=== PATIENT | female | born 2000 | race Caucasian/White ===

== ENCOUNTER 2022-09-09 11:28 | Emergency (ER) | payer OTHER, SELFPAY ==
--- NOTE | ~2022-09-09 | US_ITS ---
EXAMINATION: US PELVIS CLINICAL INFORMATION: Right lower quadrant pain COMPARISON: None available. TECHNIQUE: Ultrasound of the pelvis is performed using both transabdominal and transvaginal transducers along with Doppler. Transvaginal imaging is performed due to inadequate visualization transabdominally. FINDINGS: Uterus: The uterus is anteverted and measures 6.4 x 3 x 4.8 cm. IUD in endometrial cavity. This is in good position. The double wall endometrial thickness is 0.2 mm. The uterus is smooth in contour and has normal myometrial echogenicity. No visible fibroid. Adnexa: Both ovaries are visualized. There is normal color flow to the adnexa. There is no ovarian torsion. Doppler demonstrates both arterial and venous vascular flow in the right and left ovary. No evidence of ovarian torsion. There is no pelvic ascites or fluid collection. Right adnexa: Corpus luteum cyst in the right ovary measuring 2 x 1.6 x 1.3 cm Right ovary measures 3 x 1.9 x 2.5 cm. Volume 7.5 mL Left adnexa: Left ovary measures 2.9 x 1.8 x 1.5 cm. Volume 4.1 mL US/US pelvic and transvaginal IMPRESSION: Normal ultrasound of pelvis.
[2022-09-09 11:33] VITALS: BP 112/71; PULSE 75; RESP 18; TEMP 36.6; O2SAT 98; BMI 27.3
--- NOTE | 2022-09-09 11:33 | ED.ABDPAIN ---
HPI - Abdominal Pain General Chief Complaint: Abdominal Pain <BALTAZAR Jackman Last Filed: 09/09/22 11:38> Stated Complaint: abd pain/dehydrated <BALTAZAR Jackman Last Filed: 09/09/22 11:38> Time Seen by Provider: 09/09/22 12:57 <BALTAZAR Jackman Last Filed: 09/09/22 11:38> Source: patient and RN notes reviewed <BALTAZAR Hudson Last Filed: 09/09/22 18:51> Mode of arrival: ambulatory <BALTAZAR Hudson Last Filed: 09/09/22 18:51> Limitations: no limitations <BALTAZAR Hudson Last Filed: 09/09/22 18:51> History of Present Illness HPI narrative: This is a 21-year-old female, with a past medical history of type 1 diabetes, who presents to the emergency department today with complaints of abdominal pain since this morning. Patient reports that she woke up this morning and felt lower abdominal pain. She had associated nausea. She reports that she no longer has abdominal pain, but reports abdominal pain only when someone presses on her abdomen. Denies vomiting or diarrhea. She reports that she is sexually active, new partner in the last month. Denies any abnormal vaginal discharge, dysuria, hematuria, urinary urgency or frequency. Denies fevers or chills, recent URI, chest pain or shortness of breath. Denies constipation. She recently was diagnosed with type 1 diabetes and is currently being followed by endocrinology. No other complaints or concerns at this time. <BALTAZAR Hudson Last Filed: 09/09/22 18:51> MD elicited complaint: abdominal pain <BALTAZAR Hudson Last Filed: 09/09/22 18:51> Pertinent past history: none <BALTAZAR Hudson Last Filed: 09/09/22 18:51> Pain Consistency: constant <BALTAZAR Hudson Last Filed: 09/09/22 18:51> Location: none <BALTAZAR Hudson Last Filed: 09/09/22 18:51> Severity: moderate <BALTAZAR Hudson Last Filed: 09/09/22 18:51> Quality: cramping <BALTAZAR Hudson Filed: 09/09/22 18:51> Radiation: none <BALTAZAR Hudson - Last Filed: 09/09/22 18:51> Migration to: no migration <BALTAZAR Hudson Last Filed: 09/09/22 18:51> Exacerbating factors: nothing <BALTAZAR Hudson Last Filed: 09/09/22 18:51> Relieving factors: nothing <BALTAZAR Hudson Last Filed: 09/09/22 18:51> Associated symptoms: nausea <BALTAZAR Hudson Last Filed: 09/09/22 18:51> Related Data Allergies/Adverse Reactions: Allergies Allergy/AdvReac Type Severity Reaction Status Date / Time No Known Allergies Allergy Verified 09/09/22 11:33 <BALTAZAR Jackman Last Filed: 09/09/22 11:38> Review of Systems Review of Systems Constitutional: No Weight loss, No Fever, No Chills ENT/Mouth: No Ear Pain, No Nasal Congestion, No Sinus Pain, No Hoarseness, No sore throat, No Rhinorrhea, No Swallowing Difficulty Cardiovascular: No Chest Pain, No SOB Respiratory: No Cough, No Sputum, No Wheezing Gastrointestinal: + Nausea (resolved), No Vomiting, No Diarrhea, No Constipation, +Abdominal pain Genitourinary: No Dysuria, No Urinary Frequency, No Hematuria, No Urinary Incontinence/retention, No Urgency, No Flank Pain Musculoskeletal: No joint pain, No Myalgias, No Joint Swelling Skin: No Skin Lesions, No rash Neuro: No Weakness, No Numbness, No Paresthesias <BALTAZAR Hudson Last Filed: 09/09/22 18:51> Yes all other systems are reviewed and are negative <BALTAZAR Hudson Last Filed: 09/09/22 18:51> Constitutional: Reports as per HPI <BALTAZAR Hudson Last Filed: 09/09/22 18:51> [facility] Social History Social History: Social History Advance Directives: No <BALTAZAR Jackman Last Filed: 09/09/22 11:38> Physical Exam ED Vital Signs: Vital Signs - 24 hr 09/09/22 11:33 Temperature 98 F Pulse Rate 75 Respiratory Rate 18 Blood Pressure 112/71 Pulse Oximetry 98 Oxygen Delivery Method Room Air BMI result Body Mass Index 27.3 <Catherinejagdeep Eli PA - Last Filed: 09/09/22 11:38> Vital Signs - 24 hr 09/09/22 11:33 Temperature 98 F Pulse Rate 75 Respiratory Rate 18 Blood Pressure 112/71 Pulse Oximetry 98 Oxygen Delivery Method Room Air BMI result Body Mass Index 27.3 <Hailey Salcedo PA - Last Filed: 09/09/22 18:51> Const General: cooperative, comfortable and no acute distress <Hailey Salcedo PA - Last Filed: 09/09/22 18:51> Orientation/consciousness: patient oriented x3 <Hailey Salcedo PA - Last Filed: 09/09/22 18:51> Limitations: no limitations <Hailey Salcedo PA - Last Filed: 09/09/22 18:51> HENMT Head: Yes normal to inspection, Yes normocephalic and Yes atraumatic <Hailey Salcedo PA - Last Filed: 09/09/22 18:51> Ears: hearing grossly normal bilaterally <Hailey Salcedo PA - Last Filed: 09/09/22 18:51> General nose exam: Normal external nose present <Hailey Salcedo PA - Last Filed: 09/09/22 18:51> Face and sinus: Yes normal facial exam <Hailey Salcedo PA - Last Filed: 09/09/22 18:51> Mouth: Normal oral and palatal mucosa present, oropharynx normal and moist mucous membranes <Hailey Salcedo PA - Last Filed: 09/09/22 18:51> Throat: Yes posterior oropharynx normal <Hailey Salcedo PA - Last Filed: 09/09/22 18:51> Eyes General: appearance normal, both eyes and all related structures <Hailey Salcedo PA - Last Filed: 09/09/22 18:51> Eyelids: Yes eyelids normal <Hailey Salcedo PA - Last Filed: 09/09/22 18:51> Conjunctivae: conjunctivae normal <Hailey Salcedo PA - Last Filed: 09/09/22 18:51> Sclerae: sclerae normal <Hailey Salcedo PA - Last Filed: 09/09/22 18:51> Pupils: Equal, round and reactive pupils present <Hailey Salcedo [facility] Last Filed: 09/09/22 18:51> EOM: EOMs intact bilaterally <Hailey Salcedo [facility] Last Filed: 09/09/22 18:51> Neck Neck: Yes normal visual inspection, Yes full ROM and Yes no lymphadenopathy <Hailey Salcedo [facility] Last Filed: 09/09/22 18:51> Lymphatic: no lymphadenopathy noted <Hailey Moncadamaryann [facility] Last Filed: 09/09/22 18:51> Chest Chest palpation & inspection: normal inspection of the chest <Hailey Moncadamaryann [facility] Last Filed: 09/09/22 18:51> Resp Effort & Inspection: normal respiratory effort and able to speak in complete sentences <Hailey Moncadamaryann [facility] Last Filed: 09/09/22 18:51> Auscultation: clear to auscultation bilaterally, no crackles, no rales, no rhonchi and no wheezes <Hailey Mocnadamaryann [facility] Last Filed: 09/09/22 18:51> Cardio Rate: regular rate <Hailey Salcedo [facility] Last Filed: 09/09/22 18:51> Rhythm: regular rhythm <Hailey Salcedo [facility] Last Filed: 09/09/22 18:51> Heart sounds: S1 normal heart sound present and S2 normal heart sound present <Hailey Salcedo [facility] Last Filed: 09/09/22 18:51> GI Other: Abdomen is soft, with tenderness to palpation in the right suprapubic region. No rebound or guarding. Negative obturator sign. <Hailey Moncadamaryann [facility] Last Filed: 09/09/22 18:51> Inspection: Yes normal to inspection <Hailey Moncadamaryann [facility] Last Filed: 09/09/22 18:51> Auscultation: normal bowel sounds <Hailey Salcedo, [facility] Last Filed: 09/09/22 18:51> Other: scant yellow/green thick vaginal discharge within the vaginal vault <Hailey Salcedo, [facility] Last Filed: 09/09/22 18:51> External Female Exam: normal external appearance, normal appearance of the urethra, No erythema, No externally tender, No external swelling and No lesion <Hailey Salcedo PA - Last Filed: 09/09/22 18:51> Speculum Exam - Vagina: normal appearance of the vagina, normal palpation and not erythematous <Hailey Salcedo PA - Last Filed: 09/09/22 18:51> Speculum Exam - Cervix: normal appearance of the cervix and Cervical os closed <Hailey Salcedo PA - Last Filed: 09/09/22 18:51> Bimanual exam- vagina & uterus: normal palpation <Hailey Salcedo PA - Last Filed: 09/09/22 18:51> Skin General skin exam: no rashes or lesions noted <Hailey Salcedo PA - Last Filed: 09/09/22 18:51> Trauma: no lacerations or abrasions <Hailey Salcedo PA - Last Filed: 09/09/22 18:51> Wounds: no wounds <Hailey Salcedo PA - Last Filed: 09/09/22 18:51> Neuro General: patient oriented x3 and moves all extremities <Hailey Salcedo PA - Last Filed: 09/09/22 18:51> Cranial nerves: Yes Equal, round and reactive pupils present <Hailey Salcedo PA - Last Filed: 09/09/22 18:51> Extrem General: Yes normal to inspection <Hailey Salcedo PA - Last Filed: 09/09/22 18:51> Right upper extremity: normal to inspection <Hailey Salcedo PA - Last Filed: 09/09/22 18:51> Left upper extremity: normal to inspection <Hailey Salcedo PA - Last Filed: 09/09/22 18:51> Right lower extremity: normal to inspection <Hailey Salcedo PA - Last Filed: 09/09/22 18:51> Left lower extremity: normal to inspection <Hailey Salcedo PA - Last Filed: 09/09/22 18:51> Course Course Course Narrative: RME-- 21yo F w/PMHx newly diagnoised with DM c/o lower abdominal pain x today w/microscopic hematuria [facility]. Also reports fluctuating blood sugars & nausea. Takes insulin for DM. denies fever, chills, dysuria, diarrhea. School nurse concerned for dehydration Labs, UA, POC ordered <Catherine Eli PA - Last Filed: 09/09/22 11:38> Medical Decision Making Medical Decision Making MDM Narrative: 21-year-old female, with past medical history of type 1 diabetes, presents today for evaluation of abdominal pain and nausea since this morning. Patient reports that she woke up and developed abdominal pain which lasted for several hours and resolved upon arrival at the emergency department. On examination patient's vital signs stable, patient is nontoxic appearing afebrile, has no leukocytosis, urinalysis within normal limits. Patient has tenderness to palpation in the right suprapubic region, but does not have abdominal pain at rest and believes that her symptoms have resolved. No obturator sign, no rebound or guarding. I have a low clinical suspicion for appendicitis given these clinical findings, resolution of her right lower abdominal pain and nausea, no leukocytosis, and patient is afebrile. Patient reports new sexual partner over the last month, denies concern for STIs, however given new contact, willing to have STI testing performed today. On examination, patient has normal vaginal examination with no cervical tenderness, mild right adanexal tenderness with palpation, with scant yellow/green discharge. Pelvic US normal. Discussed with patient clinical findings and concern for pelvic inflammatory disease, however patient declines treatment today as she feels as though her abdominal pain has resolved and no longer has nausea. Informed patient that we will call her with any abnormal test results. Patient declines prophylactic treatment for STIs at this time. Discussed that if any of these test results do come back positive she may have to return for treatment. Also discussed with patient if her abdominal pain returns, to return for the ER for further evaluation. Patient understands agrees with this plan, and is requesting to eat. Patient is able to tolerate p.o. Patient stable for discharge. <BALTAZAR Hudson - Last Filed: 09/09/22 18:51> Differential Diagnosis Differential Diagnoses: The differential diagnosis associated with the presentation includes <BALTAZAR Hudson Last Filed: 09/09/22 18:51> Ovarian cyst, pelvic inflammatory disease, UTI, STI, appendicitis-less likely, <BALTAZAR Hudson - Last Filed: 09/09/22 18:51> Admission/Observation Consideration of admission/observation: Escalation of care including admission/observation considered <BALTAZAR Hudson Last Filed: 09/09/22 18:51> Lab Data MDM Lab Attestation statement: I reviewed the patient's lab results. <BALTAZAR Hudson - Last Filed: 09/09/22 18:51> Result Diagrams: 09/09/22 11:50 09/09/22 11:50 <BALTAZAR Jackman - Last Filed: 09/09/22 11:38> Labs: Lab Results 09/09/22 09/09/22 09/09/22 Range/Units 11:50 11:50 13:30 WBC 6.9 (4.8-10.8) X10*3/uL RBC 4.13 L (4.20-5.50) X10*6/uL Hgb 12.4 (12.0-16.0) g/dl Hct 37.8 (37.0-47.0) % MCV 91.5 (80.0-98.0) fL MCH 30.0 (27.0-33.0) pg MCHC 32.8 (31.0-35.0) g/dl RDW 12.6 (11.0-16.0) % Plt Count 206 (160-400) X10*3/uL MPV 9.6 (9.4-12.3) fL Immature Gran % (Auto) 0.1 (0.0-0.4) % Neut % (Auto) 68.8 (45-73) % Lymph % (Auto) 24.5 (20-40) % [place] % (Auto) 5.9 (2-11) % Eos % (Auto) 0.0 (0-4) % Baso % (Auto) 0.7 (0-2) % Lymph # (Auto) 1.7 (1.2-4.9) X10*3/uL [place] # (Auto) 0.4 (0.1-1.2) X10*3/uL Eos # (Auto) 0.0 (0.0-0.4) X10*3/uL Baso # (Auto) 0.1 (0.0-0.2) X10*3/uL Abs Immat Gran (auto) 0.01 (0.00-0.03) X10*3/uL Absolute Neuts (auto) 4.7 (2.0-8.3) x10*3/uL Absolute Nucleated RBC 0.000 (0.0-0.012) X10*3/uL Nucleated RBC % (auto) 0.0 (0.0-0.2) /100WBC Sodium 139 (135-145) mmol/L Potassium 4.5 (3.3-5.1) mmol/L Chloride 107 (96-108) mmol/L Carbon Dioxide 26 (22-29) mmol/L Anion Gap 11 L (12-20) BUN 11 (9-16) mg/dL Creatinine 0.76 (0.5-1.4) mg/dL Estim Creat Clear Calc 133.4 Estimated GFR > 60 Random Glucose 99 (60-115) mg/dL Calcium 9.3 (8.4-10.2) mg/dL Magnesium 2.0 (1.6-2.6) mg/dL Total Bilirubin 0.6 (0.0-1.0) mg/dL Direct Bilirubin 0.2 (0.0-0.5) mg/dL AST 12 (5-31) U/L ALT < 5 (0-31) U/L Alkaline Phosphatase 92 (39-117) U/L Total Protein 6.5 (6.5-8.0) g/dL Albumin 4.1 (3.5-5.0) g/dL Lipase 22 (8-78) U/L Urine Color Yellow Urine Appearance Hazy Urine pH 6.0 (5.0-9.0) Ur Specific Boy[place] 1.020 (1.005-1.025) Urine Protein Negative (Neg-Trace) mg/dL Urine Glucose (UA) Negative (Negative) mg/dL Urine Ketones Negative (Negative) mg/dL Urine Blood Negative (Negative) Urine Nitrite Negative (Negative) Ur Leukocyte Esterase Negative (Negative) Urine Test (NEGATIVE) Chlam trachomat DNA PCR (Not Detect.) N.gonorrhoeae DNA (PCR) (Not Detect.) 09/09/22 09/09/22 Range/Units 13:30 14:32 WBC (4.8-10.8) X10*3/uL RBC (4.20-5.50) X10*6/uL Hgb (12.0-16.0) g/dl Hct (37.0-47.0) % MCV (80.0-98.0) fL MCH (27.0-33.0) pg MCHC (31.0-35.0) g/dl RDW (11.0-16.0) % Plt Count (160-400) X10*3/uL MPV (9.4-12.3) fL Immature Gran % (Auto) (0.0-0.4) % Neut % (Auto) (45-73) % Lymph % (Auto) (20-40) % [place] % (Auto) (2-11) % Eos % (Auto) (0-4) % Baso % (Auto) (0-2) % Lymph # (Auto) (1.2-4.9) X10*3/uL [place] # (Auto) (0.1-1.2) X10*3/uL Eos # (Auto) (0.0-0.4) X10*3/uL Baso # (Auto) (0.0-0.2) X10*3/uL Abs Immat Gran (auto) (0.00-0.03) X10*3/uL Absolute Neuts (auto) (2.0-8.3) x10*3/uL Absolute Nucleated RBC (0.0-0.012) X10*3/uL Nucleated RBC % (auto) (0.0-0.2) /100WBC Sodium (135-145) mmol/L Potassium (3.3-5.1) mmol/L Chloride (96-108) mmol/L Carbon Dioxide (22-29) mmol/L Anion Gap (12-20) BUN (9-16) mg/dL Creatinine (0.5-1.4) mg/dL Estim Creat Clear Calc Estimated GFR Random Glucose (60-115) mg/dL Calcium (8.4-10.2) mg/dL Magnesium (1.6-2.6) mg/dL Total Bilirubin (0.0-1.0) mg/dL Direct Bilirubin (0.0-0.5) mg/dL AST (5-31) U/L ALT (0-31) U/L Alkaline Phosphatase (39-117) U/L Total Protein (6.5-8.0) g/dL Albumin (3.5-5.0) g/dL Lipase (8-78) U/L Urine Color Urine Appearance Urine pH (5.0-9.0) Ur Specific Boyds (1.005-1.025) Urine Protein (Neg-Trace) mg/dL Urine Glucose (UA) (Negative) mg/dL Urine Ketones (Negative) mg/dL Urine Blood (Negative) Urine Nitrite (Negative) Ur Leukocyte Esterase (Negative) Urine Test NEGATIVE (NEGATIVE) Chlam trachomat DNA PCR NOT DETECTED (Not Detect.) N.gonorrhoeae DNA (PCR) NOT DETECTED (Not Detect.) <BALTAZAR Jackman - Last Filed: 09/09/22 11:38> Lab Results 09/09/22 09/09/22 09/09/22 Range/Units 11:50 11:50 13:30 WBC 6.9 (4.8-10.8) X10*3/uL RBC 4.13 L (4.20-5.50) X10*6/uL Hgb 12.4 (12.0-16.0) g/dl Hct 37.8 (37.0-47.0) % MCV 91.5 (80.0-98.0) fL MCH 30.0 (27.0-33.0) pg MCHC 32.8 (31.0-35.0) g/dl RDW 12.6 (11.0-16.0) % Plt Count 206 (160-400) X10*3/uL MPV 9.6 (9.4-12.3) fL Immature Gran % (Auto) 0.1 (0.0-0.4) % Neut % (Auto) 68.8 (45-73) % Lymph % (Auto) 24.5 (20-40) % [place] % (Auto) 5.9 (2-11) % Eos % (Auto) 0.0 (0-4) % Baso % (Auto) 0.7 (0-2) % Lymph # (Auto) 1.7 (1.2-4.9) X10*3/uL [place] # (Auto) 0.4 (0.1-1.2) X10*3/uL Eos # (Auto) 0.0 (0.0-0.4) X10*3/uL Baso # (Auto) 0.1 (0.0-0.2) X10*3/uL Abs Immat Gran (auto) 0.01 (0.00-0.03) X10*3/uL Absolute Neuts (auto) 4.7 (2.0-8.3) x10*3/uL Absolute Nucleated RBC 0.000 (0.0-0.012) X10*3/uL Nucleated RBC % (auto) 0.0 (0.0-0.2) /100WBC Sodium 139 (135-145) mmol/L Potassium 4.5 (3.3-5.1) mmol/L Chloride 107 (96-108) mmol/L Carbon Dioxide 26 (22-29) mmol/L Anion Gap 11 L (12-20) BUN 11 (9-16) mg/dL Creatinine 0.76 (0.5-1.4) mg/dL Estim Creat Clear Calc 133.4 Estimated GFR > 60 Random Glucose 99 (60-115) mg/dL Calcium 9.3 (8.4-10.2) mg/dL Magnesium 2.0 (1.6-2.6) mg/dL Total Bilirubin 0.6 (0.0-1.0) mg/dL Direct Bilirubin 0.2 (0.0-0.5) mg/dL AST 12 (5-31) U/L ALT < 5 (0-31) U/L Alkaline Phosphatase 92 (39-117) U/L Total Protein 6.5 (6.5-8.0) g/dL Albumin 4.1 (3.5-5.0) g/dL Lipase 22 (8-78) U/L Urine Color Yellow Urine Appearance Hazy Urine pH 6.0 (5.0-9.0) Ur Specific [place] 1.020 (1.005-1.025) Urine Protein Negative (Neg-Trace) mg/dL Urine Glucose (UA) Negative (Negative) mg/dL Urine Ketones Negative (Negative) mg/dL Urine Blood Negative (Negative) Urine Nitrite Negative (Negative) Ur Leukocyte Esterase Negative (Negative) Urine Test (NEGATIVE) Chlam trachomat DNA PCR (Not Detect.) N.gonorrhoeae DNA (PCR) (Not Detect.) 09/09/22 09/09/22 Range/Units 13:30 14:32 WBC (4.8-10.8) X10*3/uL RBC (4.20-5.50) X10*6/uL Hgb (12.0-16.0) g/dl Hct (37.0-47.0) % MCV (80.0-98.0) fL MCH (27.0-33.0) pg MCHC (31.0-35.0) g/dl RDW (11.0-16.0) % Plt Count (160-400) X10*3/uL MPV (9.4-12.3) fL Immature Gran % (Auto) (0.0-0.4) % Neut % (Auto) (45-73) % Lymph % (Auto) (20-40) % [place] % (Auto) (2-11) % Eos % (Auto) (0-4) % Baso % (Auto) (0-2) % Lymph # (Auto) (1.2-4.9) X10*3/uL [place] # (Auto) (0.1-1.2) X10*3/uL Eos # (Auto) (0.0-0.4) X10*3/uL Baso # (Auto) (0.0-0.2) X10*3/uL Abs Immat Gran (auto) (0.00-0.03) X10*3/uL Absolute Neuts (auto) (2.0-8.3) x10*3/uL Absolute Nucleated RBC (0.0-0.012) X10*3/uL Nucleated RBC % (auto) (0.0-0.2) /100WBC Sodium (135-145) mmol/L Potassium (3.3-5.1) mmol/L Chloride (96-108) mmol/L Carbon Dioxide (22-29) mmol/L Anion Gap (12-20) BUN (9-16) mg/dL Creatinine (0.5-1.4) mg/dL Estim Creat Clear Calc Estimated GFR Random Glucose (60-115) mg/dL Calcium (8.4-10.2) mg/dL Magnesium (1.6-2.6) mg/dL Total Bilirubin (0.0-1.0) mg/dL Direct Bilirubin (0.0-0.5) mg/dL AST (5-31) U/L ALT (0-31) U/L Alkaline Phosphatase (39-117) U/L Total Protein (6.5-8.0) g/dL Albumin (3.5-5.0) g/dL Lipase (8-78) U/L Urine Color Urine Appearance Urine pH (5.0-9.0) Ur Specific [place] (1.005-1.025) Urine Protein (Neg-Trace) mg/dL Urine Glucose (UA) (Negative) mg/dL Urine Ketones (Negative) mg/dL Urine Blood (Negative) Urine Nitrite (Negative) Ur Leukocyte Esterase (Negative) Urine Test NEGATIVE (NEGATIVE) Chlam trachomat DNA PCR NOT DETECTED (Not Detect.) N.gonorrhoeae DNA (PCR) NOT DETECTED (Not Detect.) <BALTAZAR Hudson - Last Filed: 09/09/22 18:51> Independent Interpretation I performed an independent interpretation of an: Ultrasound <BALTAZAR Hudson - Last Filed: 09/09/22 18:51> Radiology Impression Discussion of test interpretation with radiology: I have reviewed the radiologist's reading. <BALTAZAR Hudson - Last Filed: 09/09/22 18:51> Radiologist Impression: EXAMINATION:? US PELVIS CLINICAL INFORMATION:? Right lower quadrant pain COMPARISON: None available. TECHNIQUE: Ultrasound of the pelvis is performed using both transabdominal and transvaginal transducers along with Doppler. Transvaginal imaging is performed due to inadequate visualization transabdominally. FINDINGS: Uterus: The uterus is anteverted and measures 6.4 x 3 x 4.8 cm.? IUD in endometrial cavity. This is in good position. The double wall endometrial thickness is 0.2 mm.? The uterus is smooth in contour and has normal myometrial echogenicity. ? No visible fibroid. Adnexa: Both ovaries are visualized. There is normal color flow to the adnexa. There is no ovarian torsion. Doppler demonstrates both arterial and venous vascular flow in the right and left ovary. No evidence of ovarian torsion. There is no pelvic ascites or fluid collection. Right adnexa: Corpus luteum cyst in the right ovary measuring 2 x 1.6 x 1.3 cm Right ovary measures 3 x 1.9 x 2.5 cm. Volume 7.5 mL Left adnexa: Left ovary measures 2.9 x 1.8 x 1.5 cm. Volume 4.1 mL US/US pelvic and transvaginal IMPRESSION: Normal ultrasound of pelvis. ? Dictated By: Azael Silva MD <BALTAZAR Hudson - Last Filed: 09/09/22 18:51> External Record Review External record reviewed: Inpatient record, Office record, Outpatient record, Prior outpatient labs, Prior outpatient radiology, Primary care record and Outside ED record <BALTAZAR Hudson - Last Filed: 09/09/22 18:51> Discharge Plan Discharge Clinical Impression: Abdominal pain <BALTAZAR Jackman - Last Filed: 09/09/22 11:38> Patient Disposition: Home, Self-Care <BALTAZAR Jackman - Last Filed: 09/09/22 11:38> Instructions: Abdominal Pain (ED), Pelvic Pain (ED) <BALTAZAR Jackman - Last Filed: 09/09/22 11:38> Additional Instructions: We will call you with any abnormal results from your lab testing today. Your pelvic ultrasound was normal today. Drink plenty of fluids and get plenty of rest. If you develop and new or worsening symptoms, such as worsening abdominal pain, nausea, vomiting, please return for re-evaluation. Please follow up with your primary care physician. <BALTAZAR Jackman - Last Filed: 09/09/22 11:38> Interventions: ED Discharge Assessment Last Done: 09/09/22 16:21 <BALTAZAR Jackman - Last Filed: 09/09/22 11:38> Discharge Date/Time: 09/09/22 16:21 <BALTAZAR Jackman - Last Filed: 09/09/22 11:38>
[2022-09-09 11:56] LABS: MANUAL DIFF FLAG NO
[2022-09-09 11:58] LABS: Basophils Absolute Auto 0.1 X10*3/uL (0.0-0.2); Basophils Percent Auto 0.7 % (0-2); Hematocrit 37.8 % (37.0-47.0); Hemoglobin 12.4 g/dl (12.0-16.0); Imm Gran Abs Auto 0.01 X10*3/uL (0.00-0.03); Imm Gran Pct Auto 0.1 % (0.0-0.4); Lymphocytes Absolute Auto 1.7 X10*3/uL (1.2-4.9); Lymphocytes Percent Auto 24.5 % (20-40); Mean Corpuscular HGB Conc 32.8 g/dl (31.0-35.0); Mean Corpuscular Volume 91.5 fL (80.0-98.0); Mean Platelet Volume 9.6 fL (9.4-12.3); Monocytes Absolute Auto 0.4 X10*3/uL (0.1-1.2); Monocytes Percent Auto 5.9 % (2-11); Neutrophils Absolute Auto 4.7 x10*3/uL (2.0-8.3); Neutrophils Percent Auto 68.8 % (45-73); Platelet Count 206 X10*3/uL (160-400); Red Blood Count 4.13 X10*6/uL (4.20-5.50); Red Cell Distribution Width 12.6 % (11.0-16.0); White Blood Count 6.9 X10*3/uL (4.8-10.8)
[2022-09-09 12:16] LABS: Alanine Aminotransferase < 5 U/L (0-31); Albumin Level 4.1 g/dL (3.5-5.0); Alkaline Phosphatase 92 U/L (39-117); Anion Gap 11 (12-20); Aspartate Amino Transferase 12 U/L (5-31); Bilirubin Direct 0.2 mg/dL (0.0-0.5); Bilirubin Total 0.6 mg/dL (0.0-1.0); Blood Urea Nitrogen 11 mg/dL (9-16); Calcium 9.3 mg/dL (8.4-10.2); Carbon Dioxide 26 mmol/L (22-29); Chloride 107 mmol/L (96-108); Creatinine Clr Calc Pharmacy 133.4; Estimated Glomerular Filt Rate > 60; Glucose Random 99 mg/dL (60-115); Lipase 22 U/L (8-78); Potassium 4.5 mmol/L (3.3-5.1); Sodium 139 mmol/L (135-145); Total Protein 6.5 g/dL (6.5-8.0)
[2022-09-09 13:41] LABS: Appearance Urine Hazy; Color Urine Yellow; Glucose Urine UA Negative (Negative); Leukocyte Esterase Urine Negative (Negative); Nitrite Urine Negative (Negative); Urine Blood Negative (Negative); Urine Ketones Negative (Negative); Urine Protein Negative (Neg-Trace)
[2022-09-09 13:44] LABS: UPreg QC Valid YES; Urine Pregnancy NEGATIVE (NEGATIVE)
[2022-09-09 16:09] LABS: CT PCR NOT DETECTED (Not Detect.); NG PCR NOT DETECTED (Not Detect.)
--- NOTE | 2022-09-09 16:17 | PC.NURSE ---
Resumed care of patient while she was in U/S, provider at bedside currently going on D/Cplan, pt in agreement, D/C order in.
[2022-09-10 08:58] LABS: BV Int Neg Control Negative (Negative); BV Int Pos Control Positive (Positive)
== END 2022-09-09 16:21 | disposition home or self-care (01) ==
PROVIDERS: Physician Assistant; Physician Assistant Medical; Emergency Provider Emergency Medicine
DX: R10.31 Right lower quadrant pain (principal); N89.8 Other specified noninflammatory disorders of vagina; N83.11 Corpus luteum cyst of right ovary; E10.9 Type 1 diabetes mellitus without complications; Z79.4 Long term (current) use of insulin
CPT/HCPCS: 0353U; 36415; 76830; 76856; 80048; 80076; 81003; 81025; 83690; 83735; 85025; 87480; 87510; 87660; 99282; 99284